=== PATIENT | female | born 1970 | race Caucasian/White ===

== ENCOUNTER 2019-09-17 08:03 | Emergency (ER) | payer OTHER, MEDICAID ==
[~2019-09-17] VITALS: Ht 162.6 cm; Wt 77.1 kg
[2019-09-17 08:03] VITALS: BP_SYST 126
--- NOTE | 2019-09-17 08:03 | NUR ---
BROUGHT IN BY [facility] AND [facility]ACED IN BED #5, TRIAGED. REPORT GIVEN TO FRANNY
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
--- NOTE | 2019-09-17 08:20 | NUR ---
Dr. Bruno at bedside for examination.
[2019-09-17] MEDS ORDERED: IBUPROFEN 600 MG TABLET PO ONE (08:30)
--- NOTE | 2019-09-17 09:35 | NUR ---
TAKEN TO RADIOLOGY VIA WHEELCHAIR
--- NOTE | 2019-09-17 10:10 | NUR ---
DR DELATORRE AT BEDSIDE FOR RE-EVALUATION
[2019-09-17 10:32] VITALS: BP_SYST 127
--- NOTE | 2019-09-17 10:33 | NUR ---
Patient given written and verbal discharge instructions and verbalizes understanding. ER MD discussed with patient the results and treatment provided. Patient in stable condition. ID arm band removed. Rx of IBUPROFEN given. Patient educated on pain management and to follow up with PMD. Pain Scale 0/10. Opportunity for questions provided and answered. Medication side effect fact sheet provided.
== END 2019-09-17 10:33 | disposition home or self-care (01) ==
LOC: SED 08:03
DX: S16.1XXA Strain of muscle, fascia and tendon at neck level, initial encounter (principal); S83.91XA Sprain of unspecified site of right knee, initial encounter; S20.219A Contusion of unspecified front wall of thorax, initial encounter; E11.9 Type 2 diabetes mellitus without complications; V43.62XA Car passenger injured in collision with other type car in traffic accident, initial encounter; Y93.89 Activity, other specified; Y92.413 State road as the place of occurrence of the external cause; Y99.8 Other external cause status
CPT/HCPCS: 71045; 72040-TC; 73564; 81025; 99283